=== PATIENT | male | born 1945 | race Caucasian/White ===

== ENCOUNTER 2019-09-01 14:25 | Emergency (ER) | payer OTHER ==
[~2019-09-01] VITALS: Ht 172.7 cm; Wt 61.2 kg
[2019-09-01] MEDS ORDERED: CARVEDILOL12.5 MG PO (15:26)
[2019-09-01] MEDS ORDERED: ASA81BEC PO (15:26)
[2019-09-01] MEDS ORDERED: LEXAPRO20 MG PO (15:27)
[2019-09-01] MEDS ORDERED: FAMOTIDINE 20 M20 MG PO (15:27)
[2019-09-01] MEDS ORDERED: TRADJENTA5 MG (15:27)
[2019-09-01] MEDS ORDERED: NIFEDIPINE ER30 M1 PO (15:28)
[2019-09-01] MEDS ORDERED: METFORMIN HCL500 MG PO (15:28)
[2019-09-01] MEDS ORDERED: LIPITOR40 MG PO (15:28)
[2019-09-01] MEDS ORDERED: QUETIAPINE FUM200 MG PO (15:29)
[2019-09-01] MEDS ORDERED: PRINIVIL20 M1 PO (15:30)
[2019-09-01 16:25] VITALS: BP 109/53
== END 2019-09-01 17:13 | disposition home or self-care (01) ==
LOC: ER 14:25
DX: S01.81XA Laceration without foreign body of other part of head, initial encounter (principal); W18.39XA Other fall on same level, initial encounter; Y93.01 Activity, walking, marching and hiking; Y92.89 Other specified places as the place of occurrence of the external cause; Y99.8 Other external cause status

== ENCOUNTER 2019-10-07 22:03 | Emergency (ER) | payer OTHER ==
[~2019-10-07] VITALS: Ht 182.9 cm; Wt 63.0 kg
[~2019-10-07 22:03] MED LIST: ASA81BEC PO; CARVEDILOL12.5 MG PO; FAMOTIDINE 20 M20 MG PO; LEXAPRO20 MG PO; LIPITOR40 MG PO; METFORMIN HCL500 MG PO; NIFEDIPINE ER30 M1 PO; PRINIVIL20 M1 PO; QUETIAPINE FUM200 MG PO; TRADJENTA5 MG
[2019-10-07] MEDS ORDERED: NIFEDIPINE ER30 M1 PO (22:27)
[2019-10-07] MEDS ORDERED: SERTRALINE HCL100 MG PO (22:27)
[2019-10-07] MEDS ORDERED: QUETIAPINE FUM200 MG PO (22:28)
[2019-10-08 00:01] VITALS: BP 121/53
== END 2019-10-08 00:43 | disposition still patient (30) ==
LOC: ER 22:03
DX: S01.81XA Laceration without foreign body of other part of head, initial encounter (principal); W18.39XA Other fall on same level, initial encounter; Y93.89 Activity, other specified; Y92.128 Other place in nursing home as the place of occurrence of the external cause; Y99.8 Other external cause status

== ENCOUNTER 2020-01-12 10:34 | Inpatient (IN) | payer OTHER, MEDICARE ==
[~2020-01-12] VITALS: Ht 182.9 cm; Wt 61.9 kg
--- NOTE | ~2020-01-12 | HC ---
[facility] [place] [address] CONSULTATION Name: JULIO FARAH Room #: 203-P ADM IN M.R.#: [id number] Admission: 01/12/20 Attend Phys: Maldonado Adrian Discharge: Date of : 46 Report #: [id number] THIS REPORT FOR: cc: Chao Galloway MD, Dennis R MD McKittrick, Richard James MD ~ CC: Chao Adrian MD DATE OF SERVICE: 01/13/2020 REASON FOR CONSULTATION: CLL. HISTORY OF PRESENT ILLNESS: The patient is a 74-year-old gentleman from outside, who was brought in because he was found on the floor and had probably been there for 6-8 hours. We are consulted. He has a history of CLL. History of present illness notes that I was able to obtain records from [facility] and these were records from [facility] on about 07/15/2019 and also lab from 07/22/2019. The patient is currently in the hospital at [facility]. He is not very communicative, though he does grunt and try to readjust himself in bed. He had an unwitnessed fall at [facility]. He probably fell somewhere between 7:00 yesterday and 6:00 on the day of admission. He does not recall falling. The patient is really unable to answer questions, appears comfortable. When asked whether he hurts, he says "Ow," but does not really appear to be not moving one arm or one leg or hand, etc. He is not really answering questions. PAST MEDICAL HISTORY: Appears to be notable for history of depression, some form of Alzheimer's, also diabetes, hypertension, hyperlipidemia and CLL for some time. This was described as CD5 positive and CD20 dim and CD38 positive, ZAP negative. Anxiety disorder, hearing loss, gout, insomnia. ALLERGIES: None reported. SOCIAL HISTORY: There is a note that he had been in 1995. in 2013, said he has one daughter. He also has one daughter he has not spoken to in several years as per the June 2019 note. Did not graduate high school. Worked and then retired from [employer]. Lived on his pension. Used to be a drinker, but not anymore, had also smoked cigarettes. There is also mention of cannabis use. PHYSICAL EXAMINATION: GENERAL: The patient appears his stated age. He is an elderly white male lying on his side on a Med/Surg floor. He has one or two small ecchymosis on his eyebrow and face, but these may be excoriations, I am not really clear. The [address] [address] CONSULTATION Name: JULIO FARAH Room #: 203-P [facility] IN M.R.#: [id number] Admission: 01/12/20 Attend Phys: Maldonado Adrian Discharge: Date of : 46 Report #: [id number] patient's face appears to be symmetrical. He has difficult exam as he moves around, but he does not appear to have any significant enlarged lymph nodes in the cervical, axillary, supraclavicular region, groin hard to examine because he is moving around and resists exam, but does not appear to have any adenopathy. HEENT: Oropharynx: He would not open his mouth. He is breathing comfortably. ABDOMEN: As best I can tell is without masses or gets hard to tell. EXTREMITIES: There may be some trace edema. SKIN: The skin color looks good that I can see. VITAL SIGNS: Height is 6 feet or 182.9 cm. Weight is 139 pounds or 63 kilograms. Blood pressure recently 148/74, O2 sat 92%, respirations 17, pulse 88, afebrile at 98.4 recently. MEDICATIONS: List at this time in the hospital currently includes nifedipine XL 30 mg daily, quetiapine 200 mg t.i.d., heparin 5000 units t.i.d., lisinopril 20 daily, carvedilol 12.5 b.i.d., insulin on a sliding scale. LABORATORY DATA: Since admission shows electrolytes fairly normal with a BUN on admission of 22, creatinine 1, now 17 and 0.8. Transaminases normal. Total bilirubin 0.5, magnesium slightly low at 1.1, total protein 2.8. Coags were normal. White count on admission 20,000, hemoglobin 11.1 and today 10.7, MCV 94.7, RDW of 16, platelet counts 127 yesterday and 124 today. Differential from yesterday showed 35% neutrophils, 60% lymphocytes, 1% monocytes, 1 atypical lymphocyte with an ANC of 7000. Influenza A and B were negative. UA was nonacute though did show some red blood cells, greater than 20. IMAGING: This admit included CT head without contrast that showed chronic changes with no calvarial fractures. CT face showed no facial bone fractures. Chest x-ray, portable showed no acute changes. X-ray of his bilateral feet showed oblique fracture through the right fifth metatarsal, felt to represent an old healed fracture, cortical avulsion is noted in the left lateral aspect at the base of the right first distal phalanx favored to represent an old fracture, normal left foot. ASSESSMENT AND PLAN: 1. Chronic lymphocytic leukemia. Outside records show the white count back on 07/22/2019 had been 24.7 with hemoglobin 12.3 and platelets 155 with an ANC of 7700, ALC of 16,800. Counts appear to be stable. No evidence of progression on either labs or exam or symptoms. We will check. 2. Anemia. Doubt due to hemolysis. We will check retic count, iron, B12 and folate and thyroid. 3. Platelet count nonbleeding. Coags normal. No intervention. 4. Unwitnessed fall. Note that a CT head without acute fracture, defer to others. 5. History of hypertension. Meds per others. 6. Hyperlipidemia. Meds per others. 7. History of diabetes. Sliding scale insulin and diet per others. [facility] [address] [place] [address] CONSULTATION Name: SOFIJULIO Rubin Room #: 203-P ADM IN M.R.#: [id number] Admission: 01/12/20 Attend Phys: Maldonado Adrian Discharge: Date of : 46 Report #: [id number] 8. Gout per others. 9. Mood disorder and possible Alzheimer's and cognitive impairment. Continue meds per others. We will follow with you. By: [id number] Hank Bartlett MD /nt
--- NOTE | ~2020-01-12 | HC ---
[facility] [place] [address] CONSULTATION Name: JULIO FARAH Room #: 203-P [facility] IN M.R.#: [id number] Admission: 01/12/20 Attend Phys: Maldonado Adrian Discharge: Date of : 46 Report #: [id number] THIS REPORT FOR: cc: Chao Galloway MD, Dennis R MD Deardorff, Valerie A. MD ~ CC: Chao Adrian DATE OF SERVICE: 01/14/2020 ORTHOPEDIC CONSULTATION NOTE REASON FOR CONSULTATION: Right fifth metatarsal fracture, acute versus chronic. HISTORY OF PRESENT ILLNESS: The patient is a 74-year-old male who presented to the Emergency Department after an unwitnessed fall. He lives at [facility]. He has a history of dementia. He is lying in bed this morning. Denies any foot pain. He reports walking sometimes. REVIEW OF SYSTEMS: NEUROLOGIC: Denies numbness or tingling. MUSCULOSKELETAL: Denies other injury. Of note the physical exam is significantly limited by the patient's dementia. PAST MEDICAL HISTORY: Significant for diabetes, dementia, Alzheimer's, hypertension, hyperlipidemia. ALLERGIES: No known drug allergies. HOME MEDICATIONS: From the admission history and physical show aspirin, carvedilol, citalopram, famotidine, linagliptin, atorvastatin, metformin, nifedipine, lisinopril, sertraline, quetiapine, tramadol, acetaminophen, mirtazapine, and dulaglutide. SOCIAL HISTORY: Unknown due to the patient's dementia. There is a walker in his room. PAST SURGICAL HISTORY: Unknown. LABORATORY DATA: White blood cell count on 01/13/2020 is 18.7, hemoglobin 10.7, hematocrit 31.2, platelet count 124. INR is 1.1. Chemistry is grossly normal with a low calcium of 8.1. PHYSICAL EXAMINATION: GENERAL: The patient is awakened easily. His exam again is limited due to his [facility] [address] [place] [address] CONSULTATION Name: JULIO FARAH Room #: 203-P [facility] IN [facility]#: [id number] Admission: 01/12/20 Attend Phys: Maldonado Adrian Discharge: Date of : 46 Report #: [id number]. VITAL SIGNS: Most recent vital signs show a temperature of 36.6, heart rate of 61, respiratory rate 16, blood pressure 166/89, pulse oximetry is 95% on room air. EXTREMITIES: Examination of his bilateral lower extremities, skin is clean, dry and intact. He has brisk capillary refill. He wiggles his toes. Gross motor and sensory intact. There is no tenderness to palpation throughout the bilateral feet or ankles. RADIOGRAPHS: AP, lateral and oblique of the bilateral feet were reviewed and interpreted by myself as well as the report, which show a healed oblique right metatarsal shaft fracture. No fracture on the left. IMPRESSION AND PLAN: Right healed clinically and radiographically fifth metatarsal fracture. At this point, I would not recommend any immobilization. He may weightbear as tolerated. He should return to see me or my partner, Dr. Dion Cruz if he develops pain in the area. Thank you very much time. He may be discharged today if appropriate from the medical standpoint. By: [id number] Maya Torres MD /nt
--- NOTE | ~2020-01-12 | EMS ---
[address] [address] EMS Patient Care Report Name: JULIO FARAH Room #: [facility] [place]#: [id number] Admission: 01/12/20 Attend Phys: Discharge: Date of : 46 Report #: [id number] THIS REPORT FOR: //name// Report Transmitted: 01/12/2020 10:23 EMS Care Summary [place], [place]/[facility] Incident [id number] @ 01/12/2020 10:02 Incident Location [address] [place] [address] Patient JULIO FARAH Male, 74 Years 1945 Patient Address [address] [place], [place] [id number] Patient History Dementia,Alzheimer's,Type 2 Diabetes, Patient Medications Aspirin, Chief Complaint Head injury Disposition Transported No Lights/[place] Dispatch Reason Falls Transported To [facility] Narrative 74 y/o male with new bruising on his face from an unwitnessed fall. On arrival found pt in wheelchair with ME staff on scene. Staff stated the pt had an unwitnessed fall sometime between 1900 and 0600. They found him this morning with new bruising on the left side of his face. Staff stated he falls [facility] [address] [place] [address] EMS Patient Care Report Name: JULIO FARAH Room #: [facility] [place]#: [id number] Admission: 01/12/20 Attend Phys: Discharge: Date of : 46 Report #: [id number] often and has old bruising to the right side of his face and a healing laceration to the right side of his face. EMS transferred pt to stretcher and into ambulance. Once in ambulance EMS attempted an IV, unsuccessful. EMS monitored pt/VS en route to [facility] ED. Transferred care of pt to [facility] ED RN without incident. Initial Vitals @10:28P: 76,BP: 179/73,CO: 5,SpO2: 97, @10:13P: 75,R: 20,BP: 199/89,Pain: 0/10,GCS: 14,Glucose: 164,CO: 0,SpO2: 99,Revised Trauma: 12, Assessments @10:07MENTAL:No Abnormalities,SKIN:No Abnormalities,HEENT:Head/Face: Other,LUNG SOUNDS:General: No Abnormalities,Left Upper: No Abnormalities,Right Upper: No Abnormalities,Left Lower: No Abnormalities,Right Lower: No Abnormalities,ABDOMEN:General: No Abnormalities,Left Upper: No Abnormalities,Right Upper: No Abnormalities,Left Lower: No Abnormalities,Right Lower: No Abnormalities,PELVIS//GI:No Abnormalities,EXTREMITIES:Capillary Refill: Left Upper: < 2 Sec,Left Arm: No Abnormalities,Right Arm: No Abnormalities,Left Leg: No Abnormalities,Right Leg: No Abnormalities,PULSE:Radial: 2+ Normal,NEURO:No Abnormalities, Impression Injury of Head Procedures @10:07ALS AssessmentResponse: UnchangedSucceeded@10:17Saline Lock 0cc (18 ga) Site: Antecubital-LeftResponse: UnchangedFailed@10:15Saline Lock 0cc (18 ga) Site: Antecubital-LeftResponse: UnchangedFailed Timeline 10:00,Call Received 10:00,Dispatch Notified 10:02,Dispatched 10:03,En Route 10:06,On Scene 10:07,At Patient 10:07,ALS Assessment,Response: UnchangedSucceeded, 10:13,BP: 199/89 M,PULSE: 75,RR: 20 R,SPO2: 99 Ox,ETCO2: ,B,PAIN: 0,GCS: 14, 10:15,Saline Lock 0cc 18 ga Site: Antecubital-Left,Response: UnchangedFailed, 10:17,Saline Lock 0cc 18 ga Site: Antecubital-Left,Response: UnchangedFailed, 10:21,Depart Scene 10:28,BP: 179/73 M,PULSE: 76,RR: R,SPO2: 97 Ox,ETCO2: ,BG: ,PAIN: ,GCS: , 10:29,At Destination [address] [address] EMS Patient Care Report Name: JULIO FARAH Room #: REG [facility] [place]#: [id number] Admission: 01/12/20 Attend Phys: Discharge: Date of : 46 Report #: [id number] 10:47,Call Closed Disclaimer v1.1 Copyright 2020 [employer] This EMS Care Summary contains data elements from the applicable legal record (which may be displayed differently). It is designed to provide pertinent information for the following purposes: continuity of care, clinical quality, and state data reporting. The complete legal record is available to ED staff and administrators of the receiving hospital in ES's Patient Tracker. All data is provided "as is."
[~2020-01-12 10:34] MED LIST changes: +SERTRALINE HCL100 MG PO
[2020-01-12 10:35] VITALS: BP 134/69
[2020-01-12] MEDS ORDERED: TRAMADOL 50 MG50 MG PO (10:56)
[2020-01-12] MEDS ORDERED: TYLENOL325 MG PO (10:57)
[2020-01-12] MEDS ORDERED: REMERON15 M2 PO (10:58)
[2020-01-12] MEDS ORDERED: TRULICITY0.75 MG/0. SUBQ (10:59)
[2020-01-12 11:49] LABS: HEMATOCRIT 33.1 % (42.0-52.0); HEMOGLOBIN 11.1 gm/dL (14.0-18.0); MCH 31.8 pg (26.0-34.0); MCHC 33.4 g/dL (28.0-37.0); MCV 95.3 fL (80.0-100.0); PLATELET COUNT 127 thou/uL (150-400); RBC 3.48 mil/uL (4.50-6.00); RDW 15.5 % (10.5-14.5)
[2020-01-12 11:57] LABS: ANION GAP 6 mmol/L (7-16); BUN 22 mg/dL (7-18); CALCIUM 8.3 mg/dL (8.5-10.1); CHLORIDE 104 mmol/L (98-107); CO2 31 mmol/L (21-32); GLUCOSE 165 mg/dL (74-106); POTASSIUM 3.5 mmol/L (3.5-5.1); SODIUM 141 mmol/L (136-145)
[2020-01-12 12:07] LABS: ALBUMIN 2.8 g/dL (3.4-5.0); SGOT 22 U/L (15-37); SGPT 24 U/L (30-65); TOTAL BILIRUBIN 0.5 mg/dL (<0.1-1.0); TOTAL PROTEIN 5.4 g/dL (6.4-8.2); TROPONIN-I <0.06 ng/mL (<0.06)
[2020-01-12 12:28] LABS: ATYPICAL LYMPHS 1 %
[2020-01-12 12:29] LABS: ANISOCYTOSIS 1+
[2020-01-12 13:59] LABS: URINE BILIRUBIN NEGATIVE (Negative); URINE BLOOD 3+ (Negative); URINE CLARITY CLEAR; URINE COLOR YELLOW; URINE GLUCOSE-RANDOM* NEGATIVE (Negative); URINE KETONES NEGATIVE (Negative); URINE LEUKOCYTES-REFLEX NEGATIVE (Negative); URINE NITRITE-REFLEX NEGATIVE (Negative); URINE PROTEIN (DIPSTICK) 3+ (Negative); URINE SPECIFIC GRAVITY 1.025 (1.005-1.035)
[2020-01-12 14:12] LABS: HYALINE CASTS 0-3 Few /LPF (None Seen); RENAL EPITHELIAL CELLS 0-3 Few /LPF (None Seen); SQUAMOUS 0-3 Few /LPF (0-3); TRANSITIONAL EPITHEL CELL 0-3 Few /LPF (None Seen); URINE RBC >20 Many /HPF (0-2); URINE WBC-REFLEX 0-5 Rare /HPF (0-5)
[2020-01-12 14:13] LABS: BACTERIA-REFLEX None Seen /HPF (None Seen); CRYSTALS None Seen /LPF (None Seen)
--- NOTE | 2020-01-12 16:00 | EKG ---
[facility] [address] ELECTROCARDIOGRAM REPORT Name: JULIO FARAH Room #: [facility]#: [id number] Admission: 01/12/20 Attend Phys: Discharge: Date of : 47 Report #: [id number] THIS REPORT FOR: cc: Chao Galloway MD, Dennis R MD Couchonnal, Luis F. MD ~ THIS REPORT FOR: //name// [facility] ED Test Date: 2020-01-12 Test Time: 11:23:56 Pat Name: JULIO FARAH Department: Room: Gender: Aws Solution Architect: [facility] : 1945 Requested By: Annetta Echols Order Number: [id number] MD: Ronaldo Patel Measurements Intervals [place] Rate: 81 P: 68 NE: 106 QRS: 77 QRSD: 83 T: 77 QT: 423 QTc: 491 Interpretive Statements Sinus rhythm Short NE interval No previous ECG available for comparison Electronically Signed On 01-12-2020 15:59:14 CDT by Ronaldo Patel [email or web address] <ELECTRONICALLY SIGNED> By: Ronaldo Patel MD 01/12/20 1559 D: [id number] Ronaldo Patel MD /OSITO
[2020-01-12 18:13] VITALS: BP 164/77
[2020-01-12 18:26] LABS: APTT 25.3 Seconds (24.5-32.8); FIBRINOGEN 284.2 mg/dL (210-360); INR 1.1; PROTIME 11.2 Seconds (9.3-11.4)
[2020-01-12 18:56] VITALS: BP 190/88
[2020-01-12 19:51] VITALS: BP 131/52
[2020-01-13] VITALS (7 sets, daily range): BP systolic 139–194; BP diastolic 55–93
--- NOTE | 2020-01-13 01:16 | NUR ---
RECEIVED REPORT FROM DAY SHIFT RN.PATIENT ARRIVED AROUND SHIFT CHANGE TO ROOM 203.PATIENT IS CONFUSED TRYING TO GET OUT OF BED.PATIENT HAD FALLS PRIOR TO THIS ADMISSION.PLACED ON HIGH FALL RISK PRECAUTION.BP ELEVATED,190/88.MED REC WASN'T DONE YET AT THIS TIME SO THIS RN CALLED JULIO CESAR BORJAS.3 BP MEDS WAS ORDERED UNDER PATIENT'S MED REC.SEROQUEL ALSO WAS ORDERED.FAN BLADE ALIGNER ALSO SAID TO VERIFY WITH THE CUSTODIAL ABOUT THE MEDS.[facility] WAS CALLED TWICE BUT NO ANSWER.BP MEDS WAS VERIFIED BY PHARMACY AND THIS RN WENT AHEAD AND GAVE THE MEDS TO THE PATIENT.RIGHT AFTER MEDS WAS GIVEN, PHARMACY CALLED BECAUSE THE MED SHE VERIFIED WAS IMMEDIATE RELEASE.JULIO CESAR BORJAS WAS CALLED AND MADE HER AWARE AND TOLD HER THAT WE WILL MONITOR THE PATIENT.AROUND MIDNIGHT THE BP WAS 141/55 (MAP OF 76) AND HEART RATE IS 56.JULIO CESAR BORJAS IS AWARE.WILL CONTINUE TO MONITOR PATIENT.
[2020-01-13 05:20] LABS: HEMATOCRIT 31.2 % (42.0-52.0); HEMOGLOBIN 10.7 gm/dL (14.0-18.0); MCH 32.5 pg (26.0-34.0); MCHC 34.4 g/dL (28.0-37.0); MCV 94.7 fL (80.0-100.0); PLATELET COUNT 124 thou/uL (150-400); RBC 3.29 mil/uL (4.50-6.00); WBC 18.7 thou/uL (4.0-11.0)
[2020-01-13 05:26] LABS: CALCIUM 7.7 mg/dL (8.5-10.1); CREATININE 0.8 mg/dL (0.7-1.3); MAGNESIUM 1.1 mg/dL (1.8-2.4); POTASSIUM 3.2 mmol/L (3.5-5.1)
[2020-01-13 08:34] LABS: ABSOLUTE NEUTROPHILS 5.2 thou/uL (1.4-8.2)
[2020-01-13 08:37] LABS: ANISOCYTOSIS 1+
[2020-01-13 08:38] LABS: ATYPICAL LYMPHS 2 %
[2020-01-13 08:57] LABS: ABSOLUTE RETIC COUNT 0.0275 10^6/uL; OBSERVED RETIC COUNT 0.85 % (0.6-2.6)
[2020-01-13 09:03] LABS: CALCIUM 7.8 mg/dL (8.5-10.1); CREATININE 0.9 mg/dL (0.7-1.3); POTASSIUM 3.2 mmol/L (3.5-5.1)
[2020-01-13 09:08] LABS: % SATURATION 49 % (20-39); IRON 68 ug/dL (65-175); TIBC 139 ug/dL (250-450)
[2020-01-13 09:35] LABS: FOLIC ACID 16.7 ng/mL (8.6-58.9)
--- NOTE | 2020-01-13 10:44 | NUR ---
Patient admits to [facility] elevated lactate and fall. Noted no emergency contact. Sp with RN she reviewed [facility] paperwork and notes no emergency contact. Called [facility] and left vm message with CHIN
[2020-01-13] MEDS ORDERED: PREDNISONE 20 M20 MG PO (11:20)
[2020-01-13] MEDS ORDERED: PROAIR HFA8.5 GM INH (11:20)
--- NOTE | 2020-01-13 14:10 | NUR ---
FAXED CLINICAL UPDATE TO [facility] RECEIVED CONFIRMATION AND LEFT MSG WITH MIC IN ADM. DP TO FOLLOW.
--- NOTE | 2020-01-13 18:18 | NUR ---
PT DROWSY TODAY, WHEN HE DOES WAKE UP PT IS AGITATED BUT EVENTUALLY ALLOWS CARES. PT TRIED TO CLIMB OUT OF BED TWICE AND WAS SAT BACK DOWN AND REDIRECTED. PT INCONTINENT SEVERAL TIMES, CHANGED NEEDED.
--- NOTE | 2020-01-13 19:04 | NUR ---
1600 BLOOD PRESSURE ELEVATED, PT WAS AGITATED AND TRYING TO GET OUT OF BED JUST BEFORE THIS. PT ALLOWED TO REST AND BLOOD PRESSURE RETAKEN. REPEAT WAS 182/93, SPOKE WITH DR CASTLE, ORDER TO CONTINUE WITH HOME MEDICATIONS
[2020-01-14 01:07] LABS: GLYCOHEMOGLOBIN (HGB A1C) 5.6 % (4.8-5.6)
--- NOTE | 2020-01-14 01:41 | NUR ---
ASSUMED CARE OF PT AT 1900HRS. PT IS ALERT BUT ONLY ORIENTED TO SELF. FALL PRECAUTION IN PLACE. FLUIDS CONTINUED. PT IS ON SR/SB ON TELE. PT DENIES PAIN, NAUSEA OR SOA. PT WAS CALM AND COOPERATIVE THIS SHIFT. PT WAS ABLE TO GET COMFORTABLE AND SLEEP APRT OF THE SHIFT. VSS AND NO S/S OF ACUTE DISTRESS. WILL CONTINUE TO MONITOR.
[2020-01-14 04:24] VITALS: BP 166/89
[2020-01-14 06:51] LABS: CALCIUM 8.1 mg/dL (8.5-10.1); CREATININE 1.1 mg/dL (0.7-1.3); POTASSIUM 3.7 mmol/L (3.5-5.1)
[2020-01-14 07:32] VITALS: BP 180/78
[2020-01-14 11:00] VITALS: BP 169/70
[2020-01-14] MEDS ORDERED: VITAMIN B-121000 MC1 PO (11:25)
--- NOTE | 2020-01-14 12:17 | NUR ---
PT DISCHARGING TODAY BACK TO [facility] FAXED DC ORDERS.\/SUMMARY TO FACILITY SPOKE WITH MIC IN ADM SHE RECEIVED ORDERS THEY DO NOT HAVE TRANSPORTATION SO TRANSPORT ARRANGED WITH [facility] BY SUSAN WALL AT 1400 TODAY. LEFT MSG WITH PT'S DTR (MARCUS) [phone] LEFT DP PH # TO RETURN TO MAKE SURE SHE RECEIVED MY VOICEMAIL. NOTIFIED UNIT AND CHART COPY PER US. RN TO CALL REPORT TO [phone].
--- NOTE | 2020-01-14 12:28 | NUR ---
attempted tx 3 to contact [facility] if emergency contact avail. Left messages and no return call. DC manufacturing planner was able to contact admissions at [facility] and establish number for dtr. Plan dc today
--- NOTE | 2020-01-14 14:09 | NUR ---
PT ALERT TO SELF AND TIME. UNSTAEDY GAIT. ORDERS TO DISCHARGE BACK TO [facility]. IV REMOVED FROM R FA, TELE DC'd. W/C VAN WILL WINDOW AIR CONDITIONER INSTALLER PT AT 14:00. REPORT CALLED TO FACILTY.
== END 2020-01-14 16:10 | DRG 641 ==
LOC: ER 10:34 → 2N 17:48 → EROBS 17:48 → 2N 18:39
PROVIDERS: Internal Medicine Hematology & Oncology; Nurse Practitioner; Nurse Practitioner Family; ADMIT Hospitalist
DX: E86.0 Dehydration (principal); C91.10 Chronic lymphocytic leukemia of B-cell type not having achieved remission; Z68.1 Body mass index [BMI] 19.9 or less, adult; E44.0 Moderate protein-calorie malnutrition; E87.2 Acidosis; E11.9 Type 2 diabetes mellitus without complications; G30.9 Alzheimer's disease, unspecified; F02.80 Dementia in other diseases classified elsewhere, unspecified severity, without behavioral disturbance, psychotic disturbance, mood disturbance, and anxiety; I10 Essential (primary) hypertension; E78.5 Hyperlipidemia, unspecified; F31.9 Bipolar disorder, unspecified; R29.6 Repeated falls; F41.9 Anxiety disorder, unspecified; M10.9 Gout, unspecified; G47.00 Insomnia, unspecified; F17.210 Nicotine dependence, cigarettes, uncomplicated; D64.9 Anemia, unspecified; K21.9 Gastro-esophageal reflux disease without esophagitis; I25.10 Atherosclerotic heart disease of native coronary artery without angina pectoris; E87.6 Hypokalemia; E83.42 Hypomagnesemia; R31.9 Hematuria, unspecified; D69.6 Thrombocytopenia, unspecified; S00.83XA Contusion of other part of head, initial encounter; W01.0XXA Fall on same level from slipping, tripping and stumbling without subsequent striking against object, initial encounter; Z79.899 Other long term (current) drug therapy; Z79.82 Long term (current) use of aspirin; Z79.84 Long term (current) use of oral hypoglycemic drugs; Z03.818 Encounter for observation for suspected exposure to other biological agents ruled out; Y93.89 Activity, other specified; Y92.128 Other place in nursing home as the place of occurrence of the external cause; Y99.8 Other external cause status
CPT/HCPCS: 10081

== ENCOUNTER 2020-05-24 00:51 | Inpatient (IN) | payer OTHER ==
[~2020-05-24] VITALS: Ht 182.9 cm; Wt 58.5 kg
--- NOTE | ~2020-05-24 | EMS ---
[address] [address] EMS Patient Care Report Name: JULIO FARAH Room #: 245-P ADM IN M.R.#: [id number] Admission: 05/24/20 Attend Phys: Maldonado Adrian Discharge: Date of : 47 Report #: [id number] THIS REPORT FOR: //name// Report Transmitted: 05/24/2020 03:35 EMS Care Summary [place], [place]/[facility] Incident [id number] @ 05/24/2020 00:22 Incident Location [id number] [place] [address] Patient JULIO FARAH Male, 74 Years 1945 Patient Address [address] [place] [address] Patient History Dementia, Chief Complaint Altered mental status Disposition Transported No Lights/[place] Dispatch Reason Breathing Problem Transported To [facility] Narrative 74 y/o male with altered mental status. On arrival found pt sitting in wheelchair in alf lobby with R01 and [facility] staff on scene. EMs was notified while responding that the pt was COVID-19 positive. EMS prepared the back of the ambulance by removing all unnecessary things from the back of the ambulance and placing them in cabinets, then EMS put on all PPE before entering the [facility]. Staff stated they noticed the pt was [address] [address] EMS Patient Care Report Name: JULIO FARHA Room #: 245-P [facility] IN .R.#: [id number] Admission: 05/24/20 Attend Phys: Maldonado Adrian Discharge: Date of : 47 Report #: [id number] having difficulty breathing approximately 30 minutes ago and now he is altered. Staff had a NRB on the pt but it was on his forehead so EMS took it off and switched pt to a NC @ 15 lpm O2. EMS transferred pt to stretcher and into ambulance. Once in ambulance EMS placed an IV and administered a NS fluid bolus. EMS monitored pt/VS en route to [facility] ED. Transferred care of pt to [facility] ED RN without incident. Initial Vitals @00:47BP: 66/40,SpO2: 73, @00:38P: 84,R: 30,BP: 85/43,Pain: 0/10,GCS: 8,CO: 9,SpO2: 67,Revised Trauma: 8,CT Suspected: false Assessments @00:30MENTAL:Other,SKIN:No Abnormalities,HEENT:Head/Face: No Abnormalities,Eyes: No Abnormalities,Neck/Airway: No Abnormalities,LUNG SOUNDS:General: No Abnormalities,Left Upper: No Abnormalities,Right Upper: No Abnormalities,Left Lower: No Abnormalities,Right Lower: No Abnormalities,ABDOMEN:General: No Abnormalities,Left Upper: No Abnormalities,Right Upper: No Abnormalities,Left Lower: No Abnormalities,Right Lower: No Abnormalities,PELVIS//GI:No Abnormalities,EXTREMITIES:Capillary Refill: Left Upper: 4 Sec,Left Arm: No Abnormalities,Right Arm: No Abnormalities,Left Leg: No Abnormalities,Right Leg: No Abnormalities,PULSE:Radial: 1+ Thready,Carotid: 1+ Thready,NEURO:No Abnormalities, Impression COVID-19 - Confirmed by testing Procedures @00:30ALS AssessmentResponse: UnchangedSucceeded@PTAOxygen FlowRate: 15 Device: Non Re-breather Mask (NRB) Failed@00:32Oxygen FlowRate: 15 Device: Nasal Cannula (NC) Response: ImprovedSucceeded@00:39Saline Lock 250cc (18 ga) Site: Antecubital-LeftResponse: UnchangedSucceeded Timeline PASSENGER ELEVATOR OPERATOR,Oxygen FlowRate: 15 Device: Non Re-breather Mask (NRB) Failed, 00:21,Call Received 00:21,Dispatch Notified 00:22,Dispatched 00:22,En Route 00:27,On Scene 00:30,At Patient 00:30,ALS Assessment,Response: UnchangedSucceeded, 00:32,Oxygen FlowRate: 15 Device: Nasal Cannula (NC) Response: [facility] [address] [place] [address] EMS Patient Care Report Name: SOFI,JULIO P Room #: 245-P [facility] IN .R.#: [id number] Admission: 05/24/20 Attend Phys: Maldonado Adrian Discharge: Date of : 47 Report #: [id number] ImprovedSucceeded, 00:37,Depart Scene 00:38,BP: 85/43 M,PULSE: 84,RR: 30 R,SPO2: 67 Ox,ETCO2: ,BG: ,PAIN: 0,GCS: 8, 00:39,Saline Lock 250cc 18 ga Site: Antecubital-Left,Response: UnchangedSucceeded, 00:47,BP: 66/40 M,PULSE: ,RR: R,SPO2: 73 Ox,ETCO2: ,BG: ,PAIN: ,GCS: , 00:48,At Destination 01:04,Call Closed Disclaimer v1.1 Copyright 2020 [employer] This EMS Care Summary contains data elements from the applicable legal record (which may be displayed differently). It is designed to provide pertinent information for the following purposes: continuity of care, clinical quality, and state data reporting. The complete legal record is available to ED staff and administrators of the receiving hospital in [employer]'s Patient Tracker. All data is provided "as is."
[2020-05-24 00:51] VITALS: BP 76/37
[~2020-05-24 00:51] MED LIST changes: +PREDNISONE 20 M20 MG PO; +PROAIR HFA8.5 GM INH; +REMERON15 M2 PO; +TRAMADOL 50 MG50 MG PO; +TRULICITY0.75 MG/0. SUBQ; +TYLENOL325 MG PO; +VITAMIN B-121000 MC1 PO
[2020-05-24 01:47] LABS: BE(vivo) 0.7 mmol/L (-2 to +3); HCO3 26.5 mmol/L (22.0-26.0); PO2 62.7 mmHg (80.0-100.0); pH 7.351 (7.360-7.450); sO2 90.7 % (92.0-98.0)
[2020-05-24 01:52] LABS: HEMATOCRIT 22.1 % (42.0-52.0); HEMOGLOBIN 7.3 gm/dL (14.0-18.0); MCH 32.5 pg (26.0-34.0); MCHC 32.9 g/dL (28.0-37.0); MCV 98.7 fL (80.0-100.0); PLATELET COUNT 122 thou/uL (150-400); RBC 2.24 mil/uL (4.50-6.00); RDW 14.7 % (10.5-14.5)
[2020-05-24 01:58] LABS: ALBUMIN 1.3 g/dL (3.4-5.0); BUN 63 mg/dL (7-18); CALCIUM 7.2 mg/dL (8.5-10.1); CHLORIDE 123 mmol/L (98-107); CO2 26 mmol/L (21-32); DIRECT BILIRUBIN < 0.1 mg/dL (<0.1-0.2); GLUCOSE 125 mg/dL (74-106); SGOT 22 U/L (15-37); SGPT 16 U/L (30-65); TOTAL BILIRUBIN 0.3 mg/dL (0.2-1.0); TOTAL PROTEIN 4.1 g/dL (6.4-8.2)
[2020-05-24 01:59] LABS: ANION GAP 12 mmol/L (7-16)
[2020-05-24 02:01] LABS: POTASSIUM 2.8 mmol/L (3.5-5.1); SODIUM 161 mmol/L (136-145)
[2020-05-24 02:36] VITALS: BP 95/51
[2020-05-24 02:45] LABS: URINE BILIRUBIN NEGATIVE (Negative); URINE BLOOD TRACE (Negative); URINE CLARITY CLEAR; URINE COLOR YELLOW; URINE GLUCOSE-RANDOM* NEGATIVE (Negative); URINE KETONES NEGATIVE (Negative); URINE LEUKOCYTES-REFLEX NEGATIVE (Negative); URINE NITRITE-REFLEX NEGATIVE (Negative); URINE PROTEIN (DIPSTICK) 3+ (Negative); URINE SPECIFIC GRAVITY 1.025 (1.005-1.035); URINE UROBILINOGEN 0.2 E.U./dl (0.2-1.0)
[2020-05-24 02:50] VITALS: BP 92/49
[2020-05-24 02:52] LABS: ABSOLUTE NEUTROPHILS 0.2 thou/uL (1.4-8.2)
[2020-05-24 02:54] LABS: LARGE PLATELETS OCCASIONAL
[2020-05-24 03:01] LABS: SQUAMOUS 0-3 Few /LPF (0-3)
[2020-05-24 03:02] LABS: AMORPHOUS URATES Many /LPF (None Seen); BACTERIA-REFLEX None Seen /HPF (None Seen); CASTS None Seen /LPF (None Seen); CRYSTALS None Seen /LPF (None Seen); MUCUS 0-3 Light strn/LPF (None Seen); URINE RBC 0-2 Rare /HPF (0-2); URINE WBC-REFLEX 0-5 Rare /HPF (0-5)
--- NOTE | 2020-05-24 04:00 | NUR ---
PT CAME FROM ER VIA CART ACCOMPANIED BY LABORATORY CHIEF AT 0345. PT INTUBATED AND SEDATED. PT ON 2MCG OF LEVOPHED. PT ON PROTONIX DRIP. DR. RAPHAEL AWARE OF PT ARRIVAL TO THE UNIT.
[2020-05-24 04:40] LABS: BE(vivo) -3.1 mmol/L (-2 to +3); HCO3 23.1 mmol/L (22.0-26.0); PCO2 48.1 mmHg (35.0-45.0); PO2 76.3 mmHg (80.0-100.0); sO2 93.9 % (92.0-98.0)
--- NOTE | 2020-05-24 06:00 | NUR ---
PT STARTED DESAT TO LOW 70'S. BP LOW TO 60'S. PT MAX ON LEVOPHED AND TITRATING VASOPRESSIN UP. STAT CHEST XRAY AND ABG PER DR. RAPHAEL. VENT SETTINGS CHANGED PER RT.
[2020-05-24 10:09] LABS: BE(vivo) -4.2 mmol/L (-2 to +3); HCO3 22.3 mmol/L (22.0-26.0); PCO2 49.3 mmHg (35.0-45.0); PO2 61.8 mmHg (80.0-100.0); sO2 88.4 % (92.0-98.0)
[2020-05-24 10:10] LABS: pH 7.274 (7.360-7.450)
--- NOTE | 2020-05-24 11:25 | NUR ---
ASSESSMENTS AND INTERVENTIOS DOCCUMENTED. ART LINE AND CVP PLACED BY DR. RAPHAEL AND BOLUS GIVEN. PATIENT MAXED OUT ON 3 PRESSERS. DAUGHTER CALLED, CODE GIVEN TO DAUGHTER AND UPDATE/ POC DISCUSSED. PATIENT ONLY HAVING 10CC OF URINE OUT. DR. RAPHAEL CALLED, ORDERS RECIEVED.
[2020-05-24 13:26] LABS: HCO3 18.8 mmol/L (22.0-26.0); PCO2 52.6 mmHg (35.0-45.0); sO2 73.5 % (92.0-98.0)
[2020-05-24 13:27] LABS: PO2 48.8 mmHg (80.0-100.0); pH 7.171 (7.360-7.450)
[2020-05-24 13:43] LABS: MAGNESIUM 1.8 mg/dL (1.8-2.4); POTASSIUM 3.1 mmol/L (3.5-5.1)
[2020-05-24 13:55] VITALS: BP 65/33
[2020-05-24 14:08] LABS: RDW 15.9 % (10.5-14.5); WBC 9.2 thou/uL (4.0-11.0)
[2020-05-24 14:10] LABS: MCH 33.3 pg (26.0-34.0); MCHC 32.7 g/dL (28.0-37.0); MCV 101.9 fL (80.0-100.0); RBC 1.9 mil/uL (4.50-6.00)
[2020-05-24 14:13] LABS: HEMATOCRIT 19.6 % (42.0-52.0); HEMOGLOBIN 6.3 gm/dL (14.0-18.0)
[2020-05-24 14:21] LABS: INR 1.4; PROTIME 14.8 Seconds (9.3-11.4)
[2020-05-24 16:35] VITALS: BP 107/55; BP 78/43
--- NOTE | 2020-05-24 23:22 | NUR ---
PT TIME OF 195405/24/2020 WITNESSED BY TWO RNS. PRIMARY PHYSICIAN NOTIFIED. CONSULTING PHYSICIANS NOTIFIED ABOUT THE TIME OF . FAMILY NOTIFIED ABOUT PT STATUS. HOUSE SUPERVISER NOTIFIED.
[2020-05-25 03:06] LABS: GLYCOHEMOGLOBIN (HGB A1C) 5.8 % (4.8-5.6)
--- NOTE | 2020-05-25 07:35 | HC ---
[facility] [place] [address] CONSULTATION Name: JULIO FARAH Room #: 245-P [facility] M.R.#: [id number] Admission: 05/24/20 Attend Phys: Maldonado Adrian Discharge: 05/24/20 Date of : 47 Report #: [id number] THIS REPORT FOR: cc: Chao Galloway MD,Marika Jimenez MD, MD ~ CC: Chao Adrian DATE OF SERVICE: 05/24/2020 REASON FOR CONSULTATION: Elevated creatinine and hypernatremia. REASON FOR PRESENTATION: Sent from his nursing facility because of shortness of breath. HISTORY OF PRESENT ILLNESS: Unable to obtain given the patient's current mental status. The patient is a correction resident, who tested positive in his nursing facility for COVID-19. He was brought to the Emergency Room because of worsening pulmonary status. He was hypotensive. He is known to have bipolar disorder, hyperlipidemia, diabetes mellitus, CLL. He was found to have coffee-ground emesis in the Emergency Room. Hemoglobin was 7.3. On arrival, the patient was found to have a creatinine value of 2.0 with a sodium of 161 and a potassium of 2.8 mandating a Nephrology consultation. PAST MEDICAL HISTORY: 1. Obtained from the medical chart. 2. Hyperlipidemia. 3. CLL. 4. Diabetes mellitus. 5. Hypertension. 6. Gastroesophageal reflux disease. 7. Coronary artery disease. PAST SURGICAL HISTORY: Unobtainable given the patient's current mental status. SOCIAL HISTORY: Resides in a nursing facility [facility], otherwise unobtainable. FAMILY HISTORY: Unobtainable. REVIEW OF SYSTEMS: Unobtainable given the patient's current mental status. PHYSICAL EXAMINATION: GENERAL: Currently, the patient is intubated. VITAL SIGNS: Blood pressure is 94/54, temperature is 37.3, pulse rate is 70. [facility] [address] [place] [address] CONSULTATION Name: SOFIJULIO Rubin Room #: 245-P [facility]#: [id number] Admission: 05/24/20 Attend Phys: Maldonado Adrian Discharge: 05/24/20 Date of : 47 Report #: [id number] HEAD AND NECK: No jugular venous distention. CHEST: Decreased air entry bilaterally. CARDIOVASCULAR: No rub detected. ABDOMEN: Soft, nontender. EXTREMITIES: Lower extremities, no edema. SKIN: Poor skin turgor. LABORATORY VALUES: Hemoglobin is 7.2, pH of 7.3, pCO2 is 48. Sodium is 161, potassium is 2.8, BUN of 63, creatinine is 2.0. ASSESSMENT: 1. Acute kidney injury. 2. Hypernatremia. 3. Hypokalemia. 4. Hypomagnesemia. 5. COVID-19 positive patient. 6. Acute respiratory failure. PLAN: 1. His presentation is consistent with volume depletion. I will increase the rate of his IV fluid. Replace electrolytes. 2. Currently is intubated and his pulmonary status is being addressed by the team. 3. Continue to watch urine output and electrolytes. 4. We will continue to follow during his hospital stay. <ELECTRONICALLY SIGNED> By: Marika Sarah MD 05/25/20 [id number] Marika Sarah MD /nt
== END 2020-05-24 19:55 | DRG 871 ==
LOC: ER 00:51 → ICU 02:36 → EROBS 02:36 → ICU 03:15
PROVIDERS: Emergency Medicine; Nurse Practitioner Family; Pediatrics; ADMIT Hospitalist; ATTEND Hospitalist
PROC: B548ZZA Ultrasonography of Superior Vena Cava, Guidance (ICD-10-PCS; principal; 2020-05-24)
PROC: 0BH17EZ Insertion of Endotracheal Airway into Trachea, Via Natural or Artificial Opening (ICD-10-PCS; principal; 2020-05-24)
PROC: 30233N1 Transfusion of Nonautologous Red Blood Cells into Peripheral Vein, Percutaneous Approach (ICD-10-PCS; principal; 2020-05-24)
PROC: 5A1935Z Respiratory Ventilation, Less than 24 Consecutive Hours (ICD-10-PCS; principal; 2020-05-24)
PROC: 02HV33Z Insertion of Infusion Device into Superior Vena Cava, Percutaneous Approach (ICD-10-PCS; principal; 2020-05-24)
PROC: 03HY32Z Insertion of Monitoring Device into Upper Artery, Percutaneous Approach (ICD-10-PCS; 2020-05-24)
DX: A41.89 Other specified sepsis (principal); J96.01 Acute respiratory failure with hypoxia; U07.1 COVID-19; J12.89 Other viral pneumonia; J96.02 Acute respiratory failure with hypercapnia; R65.21 Severe sepsis with septic shock; E87.0 Hyperosmolality and hypernatremia; N17.9 Acute kidney failure, unspecified; K92.2 Gastrointestinal hemorrhage, unspecified; E87.1 Hypo-osmolality and hyponatremia; G93.40 Encephalopathy, unspecified; C95.90 Leukemia, unspecified not having achieved remission; G30.9 Alzheimer's disease, unspecified; F31.9 Bipolar disorder, unspecified; F02.80 Dementia in other diseases classified elsewhere, unspecified severity, without behavioral disturbance, psychotic disturbance, mood disturbance, and anxiety; E78.5 Hyperlipidemia, unspecified; I10 Essential (primary) hypertension; E87.6 Hypokalemia; I25.10 Atherosclerotic heart disease of native coronary artery without angina pectoris; I95.9 Hypotension, unspecified; D64.9 Anemia, unspecified; E87.8 Other disorders of electrolyte and fluid balance, not elsewhere classified; D69.6 Thrombocytopenia, unspecified; Z66 Do not resuscitate; E83.42 Hypomagnesemia; R65.20 Severe sepsis without septic shock; Z79.82 Long term (current) use of aspirin; Z79.899 Other long term (current) drug therapy
CPT/HCPCS: 10078